=== PATIENT | male | born 1935 | race Caucasian/White ===

== ENCOUNTER → 2020-06-26 | Outpatient (CLI) | payer OTHER | LOC: KOH-I 09:23 | DX: M54.5 Low back pain (principal); M51.36 Other intervertebral disc degeneration, lumbar region | CPT/HCPCS: 72110 ==

== ENCOUNTER → 2021-01-05 | Outpatient (CLI) | payer OTHER | LOC: KOH-I 14:13 | DX: I73.89 Other specified peripheral vascular diseases (principal); I65.23 Occlusion and stenosis of bilateral carotid arteries | CPT/HCPCS: 93880; 93925 ==

== ENCOUNTER → 2021-02-01 | Outpatient (CLI) | payer OTHER | LOC: KOH-I 14:00 | DX: R94.6 Abnormal results of thyroid function studies (principal); E04.2 Nontoxic multinodular goiter | CPT/HCPCS: 76536 ==

== ENCOUNTER → 2021-08-03 | Outpatient (CLI) | payer OTHER | LOC: EXRD 12:57 | DX: R94.6 Abnormal results of thyroid function studies (principal) | CPT/HCPCS: 76536 ==